=== PATIENT | female | born 1985 | race Caucasian/White ===

== ENCOUNTER 2025-01-21 09:31 | Observation (INO) | payer OTHER, SELFPAY ==
--- OUTSIDE RECORDS SUMMARY | 2025-01-21 10:08 | XMS REPORT | Clinical Summary ---
Author Name Unknown Organization [facility] [place] Address [address] [place] [address] Care Team Providers Care Nailing Machine Operator Automatic Name Role Phone Chrissie Guerrier MD Primary Care Provider [phone] Allergies Active Allergy Reactions Criticality Noted Date Comments Morphine High 07/02/2016 Other reaction(s): Other Gets severe headache Ceftriaxone Anaphylaxis High 07/02/2016 Rocephin [ceftriaxone Sodium In Dextrose] Medications * This document contains information received from the source organization and may not represent a complete record from that organization. clonazePAM (KlonoPIN) 0.5 mg tablet Take 0.5 mg by mouth as needed. Active IBUPROFEN (MOTRIN ORAL) Take 2 tablets by mouth as needed. Active Active Problems No known active problems Surgical History Surgery Date Site/Laterality Comments ABDOMINAL SURGERY 10/13/2000 - 10/12/2001 cholycystectomy ,laproscopic APPENDECTOMY 10/13/1999 - 10/12/2000 HYSTERECTOMY 10/13/2007 - 10/12/2008 WI COLONOSCOPY FLX DX W/RIO J SPEC WHEN PFRMD 07/22/2016 N/A Procedure: DIAGNOSTIC FLEXIBLE COLONOSCOPY PROXIMAL TO SPLENIC FLEXURE; Surgeon: Feliciano Chao MD; Location: MAIN ENDOSCOPY; Service: GASTROENTEROLOGY WI ESOPHAGOGASTRODUODENOSCOP Y TRANSORAL DIAGNOSTIC 07/22/2016 Esophagus/N/A Procedure: DIAGNOSTIC UPPER GASTROINTESTINAL ENDOSCOPY; Surgeon: Feliciano Chao MD; Location: MAIN ENDOSCOPY; Service: GASTROENTEROLOGY Social History Tobacco Use Types Packs/Day Years Used Date Smoking Tobacco: Never Assessed Comments No Sex and Gender Information Value Date Recorded Sex Assigned at Not on file Legal Sex Female 8:39 AM CDT Gender Identity Not on file Sexual Orientation Not on file Obstetrics History Plan of Treatment Health Maintenance Due Date Last Done Comments COVID-19 Vaccine ( - 2023-2 5 season) 2024 Influenza Vaccine (#1) 2024 Pneumococcal Vaccine Aged Out No long er eligible based on patient's age to complete this topic Insurance [place] Care Teams Nailing Machine Operator Automatic Relationship Specialty Start Date End Date Chrissie Guerrier MD [address] [place] [address] [email or web address] PCP - General Gastroenterology, Hepatology and Nutrition 07/02/16
[2025-01-21] MEDS ORDERED: AZTREONAM 1 GM/VIAL ONE (10:16)
[2025-01-21] MEDS ORDERED: NA CHLORIDE 0.9% 1,000 ML ONE (10:17)
[2025-01-21] MEDS ORDERED: NA CHLORIDE 0.9% 100 ML ONE ×2 (10:17→20:08)
[2025-01-21 10:18] LABS: Specific Gravity 1.008 (1.005-1.030); Sqamous Epithelial <5 /HPF (None Seen); Urine Bacteria None Seen /HPF (<20); Urine Bilirubin NEGATIVE (Negative); Urine Blood Negative (Negative); Urine Clarity Turbid (Clear); Urine Color Colorless (Yellow); Urine Culture Reflex Order NOT NEEDED; Urine Glucose NEGATIVE (Negative); Urine Ketones NEGATIVE (Negative); Urine Microscopic Reflex YN ORDER UMIC; Urine Nitrite NEGATIVE (Negative); Urine Protein NEGATIVE (Negative); Urine RBC None Seen /HPF (None Seen); Urine Urobilinogen Normal (Normal); Urine WBC <5 /HPF (<5); Urine pH 6.5 (5.0-7.0)
[2025-01-21 10:21] LABS: Absolute Lymphocytes (CBC) 1.3 K/uL (0.7-4.9); Absolute Monocytes 0.4 K/uL (0.1-1.3); Absolute Neutrophil 3.5 K/uL (1.8-8.0); Basophils % 0.7 % (0-1.3); Eosinophils % 0.1 % (0-4.4); Hemoglobin 13.3 g/dL (12.0-15.0); Lymphocytes % 24.4 % (15.3-44.8); MCH 32.1 pg (27.0-35.0); MCHC 35.1 g/dL (32.0-36.0); MCV 91.5 fL (80-100); MPV 8.5 fL (7.6-11.3); Neutrophils % 67.8 % (41.7-73.7); Platelets 274 thou/uL (152-406); RBC Red Blood Cell Count 4.16 M/uL (3.86-4.86); Red Cell Distribution Width 12.7 % (12.1-15.2)
[2025-01-21 10:46] LABS: ALT/SGPT 16 U/L (13-56); Albumin/Globulin Ratio 1.2 (1.1-1.8); Alkaline Phosphatase 67 U/L (45-117); Anion Gap 10.8 mEq/L (5.0-15.0); BUN Blood Urea Nitrogen 11 mg/dL (7-18); Bicarbonate 26 mEq/L (21-32); Bilirubin Total 0.5 mg/dL (0.2-1.0); Globulin 3.3 g/dL (2.3-3.5); Glomerular Filtration Rate 109 ml/min (=/>90); Glucose Level 95 mg/dL (74-106); Potassium 3.8 mEq/L (3.5-5.1); Protein, Total 7.3 g/dL (6.4-8.2); Sodium Level 139 mEq/L (136-145)
[2025-01-21 10:47] LABS: AST/SGOT < 10 U/L (15-37)
--- NOTE | 2025-01-21 11:40 | RAD REPORT ---
EXAMINATION: CT Abdomen Pelvis W Contrast CLINICAL INDICATION: Female, 39 years old. Abd pain;Flank pain TECHNIQUE: CT abdomen and pelvis was performed, after the administration of IV contrast, as per [facility] protocol. Axial, sagittal and coronal reconstructions were obtained. One or more of the following dose reduction techniques were used: Automated exposure control, adjustment of the mA and k V according to patient size, and iterative reconstruction. Unless otherwise specified, incidental findings do not require dedicated imaging follow-up. COMPARISON: 05/15/2012 FINDINGS: LOWER CHEST: The visualized lung bases are clear. LIVER: Normal in size and contour. No focal lesion. BILIARY SYSTEM: Status post cholecystectomy. SPLEEN: Normal size. No focal lesion. PANCREAS: No mass, ductal dilation, or sarah-pancreatic fluid. ADRENALS: Normal; no mass. KIDNEYS: Normal size and contour. No hydronephrosis. URINARY BLADDER: Unremarkable. GASTROINTESTINAL TRACT: At least moderate colonic stool burden, most notably along the ascending and proximal transverse colon. No evidence of free air, significant intra-abdominal free fluid, bowel obstruction or abscess. APPENDIX: Normal appendix. LYMPH NODES: No lymphadenopathy. MUSCULOSKELETAL: No acute or suspicious osseous abnormality. ADDITIONAL FINDINGS: None. IMPRESSION: No acute or concerning abnormalities seen in the abdomen or pelvis. At least moderate proximal colonic stool burden.
--- NOTE | 2025-01-21 12:24 | EDPHYS ---
Physician Documentation [facility] Name: Kristan Yanez Age: 39 yrs Sex: Female : 1985 Arrival Date: 01/21/2025 Time: 09:31 Bed 11 Private MD: Jefferson Dupree HPI: 01/21 12:17 This 39 yrs old Female presents to ER via Ambulatory with complaints of UTI. darrell 12:17 The patient presents with abdominal pain in the lower abdomen. Onset: The darrell symptoms/episode began/occurred 1 day(s) ago. The patient complains of pain in the left mid back. The pain does not radiate. Onset: The symptoms/episode began/occurred 3 day(s) ago. Modifying factors: The symptoms are alleviated by nothing. the symptoms are aggravated by nothing. The patient presents with urinary symptoms, dysuria, frequency, hesitancy, urgency. Modifying factors: The symptoms are alleviated by nothing, the symptoms are aggravated by nothing. urinating. Associated signs and symptoms: The patient has no apparent associated signs or symptoms. Severity of symptoms: At their worst the symptoms were. Historical: - Allergies: 09:48 Rocephin; aa5 09:48 Phenergan; aa5 09:48 Morphine; aa5 - PMHx: 09:48 None; aa5 - PSHx: 09:48 hysterectomy; Partial; aa5 - Immunization history:: Adult Immunizations unknown. - Infectious Disease History:: Denies. - Social history:: Smoking status: Reported history of juuling and/or vaping. - Family history:: not pertinent. ROS: 12:19 Constitutional: Negative for fever, chills, and weight loss, Eyes: Negative for injury, darrell pain, redness, and discharge, ENT: Negative for injury, pain, and discharge, Neck: Negative for injury, pain, and swelling, Cardiovascular: Negative for chest pain, palpitations, and edema, Respiratory: Negative for shortness of breath, cough, wheezing, and pleuritic chest pain, Abdomen/GI: Negative for abdominal pain, nausea, vomiting, diarrhea, and constipation, : Negative for injury, bleeding, discharge, and swelling, MS/Extremity: Negative for injury and deformity, Skin: Negative for injury, rash, and discoloration, Neuro: Negative for headache, weakness, numbness, tingling, and seizure, Psych: Negative for depression, anxiety, suicide ideation, homicidal ideation, and hallucinations, Allergy/Immunology: Negative for hives, rash, and allergies, Endocrine: Negative for neck swelling, polydipsia, polyuria, polyphagia, and marked weight changes, Hematologic/Lymphatic: Negative for swollen nodes, abnormal bleeding, and unusual bruising, 12:19 Back: Positive for pain with movement, flank pain, on the left, Exam: 12:19 Constitutional: This is a well developed, well nourished patient who is awake, alert, darrell and in no acute distress. Head/Face: Normocephalic, atraumatic. Eyes: Pupils equal round and reactive to light, extra-ocular motions intact. Lids and lashes normal. Conjunctiva and sclera are non-icteric and not injected. Cornea within normal limits. Periorbital areas with no swelling, redness, or edema. ENT: Nares patent. No nasal discharge, no septal abnormalities noted. Tympanic membranes are normal and external auditory canals are clear. Oropharynx with no redness, swelling, or masses, exudates, or evidence of obstruction, uvula midline. Mucous membranes moist. Neck: Trachea midline, no thyromegaly or masses palpated, and no cervical lymphadenopathy. Supple, full range of motion without nuchal rigidity, or vertebral point tenderness. No Meningismus. Chest/axilla: Normal chest wall appearance and motion. Nontender with no deformity. No lesions are appreciated. Cardiovascular: Regular rate and rhythm with a normal S1 and S2. No gallops, murmurs, or rubs. Normal PMI, no JVD. No pulse deficits. Respiratory: Lungs have equal breath sounds bilaterally, clear to auscultation and percussion. No rales, rhonchi or wheezes noted. No increased work of breathing, no retractions or nasal flaring. Abdomen/GI: Soft, non-tender, with normal bowel sounds. No distension or tympany. No guarding or rebound. No evidence of tenderness throughout. Skin: Warm, dry with normal turgor. Normal color with no rashes, no lesions, and no evidence of cellulitis. MS/ Extremity: Pulses equal, no cyanosis. Neurovascular intact. Full, normal range of motion., bilateral aka Neuro: Awake and alert, GCS 15, oriented to person, place, time, and situation. Cranial nerves II-XII grossly intact. Motor strength 5/5 in all extremities. Sensory grossly intact. Cerebellar exam normal. Normal gait. 12:19 Back: pain, that is mild, ROM is normal, normal spinal alignment noted, CVA tenderness, is absent, vertebral tenderness, is not appreciated, Vital Signs: 09:49 BP 123 / 78; Pulse 64; Resp 18 S; Temp 98.1(O); Pulse Ox 100% on R/A; Weight 67.13 kg aa5 (R); Height 5 ft. 4 in. (R); 10:34 BP 106 / 72; Pulse 61; Resp 16 S; Pulse Ox 100% on R/A; aa5 12:15 BP 116 / 66; Pulse 64; Resp 18; Pulse Ox 99% on R/A; kj2 09:49 Body Mass Index 25.40 (67.13 kg, 162.56 cm) aa5 MDM: 09:41 Medical Screening Exam initiated darrell 12:20 Differential diagnosis: nephrolithiasis, pyelonephritis, UTI, diverticulitis, darrell pancreatitis, nonspecific abdominal pain, ovarian cyst, uterine fibroids, urinary tract infection, Cholelithiasis, diverticulitis, non-specific abd pain. Data reviewed: vital signs, nurses notes, lab test result(s), radiologic studies, CT scan. Consideration of Admission/Observation Escalation of care including admission/observation considered. I considered the following discharge prescriptions or medication management in the emergency department Medications were administered in the Emergency Department. See MAR. Independent interpretation of the following test(s) in the Emergency Department CT Scan: My interpretation is ct ab/pelvis. Test considered but Not performed: Ultrasound no renal usg. Care significantly affected by the following chronic conditions: none. 01/21 09:41 Order name: Urinalysis w/ reflexes; Complete Time: 12:15 [facility] 01/21 09:41 Order name: Urine Culture [facility] 01/21 10:01 Order name: CBC with Diff; Complete Time: 12:15 [facility] 01/21 10:01 Order name: Comprehensive Metabolic Panel; Complete Time: 12:15 [facility] 01/21 13:37 Order name: Basic Metabolic Panel [facility] 01/21 13:37 Order name: Basic Metabolic Panel [facility] 01/21 13:37 Order name: Basic Metabolic Panel [facility] 01/21 13:37 Order name: Basic Metabolic Panel [facility] 01/21 13:37 Order name: Basic Metabolic Panel [facility] 01/21 13:37 Order name: Basic Metabolic Panel [facility] 01/21 13:37 Order name: Basic Metabolic Panel [facility] 01/21 13:37 Order name: Basic Metabolic Panel [facility] 01/21 13:37 Order name: CBC with Automated Diff [facility] 01/21 13:37 Order name: CBC with Automated Diff [facility] 01/21 13:37 Order name: CBC with Automated Diff [facility] 01/21 13:37 Order name: CBC with Automated Diff [facility] 01/21 13:37 Order name: CBC with Automated Diff [facility] 01/21 13:37 Order name: CBC with Automated Diff [facility] 01/21 13:37 Order name: CBC with Automated Diff [facility] 01/21 13:37 Order name: CBC with Automated Diff ED[facility] 01/21 13:37 Order name: Comprehensive Metabolic Panel [facility] 01/21 13:37 Order name: Comprehensive Metabolic Panel [facility] 01/21 13:37 Order name: Magnesium ED[facility] 01/21 13:37 Order name: Magnesium EDMS 01/21 13:37 Order name: Magnesium EDMS 01/21 13:37 Order name: Magnesium EDMS 01/21 13:37 Order name: Magnesium EDMS 01/21 13:37 Order name: Magnesium EDMS 01/21 13:37 Order name: Magnesium EDMS 01/21 13:37 Order name: Magnesium EDMS 01/21 13:37 Order name: Urinalysis w/ reflexes EDMS 01/21 10:01 Order name: CT Abd/Pelvis - IV Contrast Only; Complete Time: 12:15 darrell 01/21 14:33 Order name: Social Service Consult EDMS Administered Medications: 10:31 Drug: NS 0.9% IV 1000 ml IV at 1 bolus Per protocol; to be given as a bolus over 60 aa5 minutes Route: IV; Rate: 1 bolus; Site: right forearm; 10:31 Drug: Aztreonam IVPB 1 grams IVPB once over 30 mins; (mix in 100 mL NS) Route: IVPB; aa5 Infused Over: 30 mins; Site: right forearm; Disposition Summary: 01/21/25 12:24 Hospitalization Ordered Notes: Hospitalization Status: Observation darrell Provider: Phil Gonzalez darrell Condition: Stable darrell Problem: new darrell Symptoms: have improved darrell Bed/Room Type: Standard darrell [facility] eb Room Assignment: 223(01/21/25 19:11) eb Diagnosis - Dysuria darrell - UTI/ Urinary tract infection, site not specified - ESBL darrell Forms: - Medication Reconciliation Form darrell - SBAR form darrell - Leadership Thank You Letter darrell Signatures: Dispatcher [employer] EDMS Jefferson Lerma MD MD cha Calderon, Audri RN RN aa5 Vaishali Hernandez Corrections: (The following items were deleted from the chart) 09:42 09:42 Urinalysis+U.LAB.BRZ ordered. EDMS EDMS 09:42 09:42 Urine Culture+BA.LAB.BRZ ordered. EDMS EDMS 09:49 09:48 PMHx: Lupus; aa5 aa5 18:24 12:24 Telemetry/[facility] (observation) darrell aa5 18:24 12:24 darrell aa5 19:11 18:24 [facility] ER HOLD aa5 eb 19:11 18:24 ERHOLD- aa5 eb
--- NOTE | 2025-01-21 12:24 | ER ---
Nurse's Notes [facility] Name: Kristan Yanez Age: 39 yrs Sex: Female : 1985 Arrival Date: 01/21/2025 Time: 09:31 Bed 11 Private MD: Diagnosis: Dysuria;UTI/ Urinary tract infection, site not specified-ESBL Presentation: 01/21 09:49 Chief complaint: Patient states: "I've had a UTI for about 3 weeks". Pt reports painful aa5 urination, urine culture reports brought in by pt reads "E.Coli consistent with a probable ESBL". Coronavirus screen: At this time, the client does not indicate any symptoms associated with coronavirus-19. Ebola Screen: Patient denies travel to an Ebola-affected area in the 21 days before illness onset. Initial Sepsis Screen: Does the patient meet any 2 criteria? No. Patient's initial sepsis screen is negative. Does the patient have a suspected source of infection? No. Patient's initial sepsis screen is negative. Risk Assessment: Do you want to hurt yourself or someone else? Patient reports no desire to harm self or others. Onset of symptoms was December 2024. 09:49 Method Of Arrival: Ambulatory aa5 09:49 Acuity: SAE 3 aa5 Historical: - Allergies: 09:48 Rocephin; aa5 09:48 Phenergan; aa5 09:48 Morphine; aa5 - PMHx: 09:48 None; aa5 - PSHx: 09:48 hysterectomy; Partial; aa5 - Immunization history:: Adult Immunizations unknown. - Infectious Disease History:: Denies. - Social history:: Smoking status: Reported history of juuling and/or vaping. - Family history:: not pertinent. Screenin:50 [facility] ED Fall Risk Assessment (Adult) History of falling in the last 3 months, aa5 including since admission No falls in past 3 months (0 pts) Confusion or Disorientation No (0 pts) Intoxicated or Sedated No (0 pts) Impaired Gait No (0 pts) Mobility Assist Device Used No (0 pt) Altered Elimination No (0 pt) Score/Fall Risk Level 0 - 2 = Low Risk Oriented to surroundings, Maintained a safe environment, Educated pt \\T\\ family on fall prevention, incl call for assistance when getting out of bed, Assessed \\T\\ reinforced patient's understanding of fall precautions. Abuse screen: Denies threats or abuse. Nutritional screening: No deficits noted. Tuberculosis screening: No symptoms or risk factors identified. Assessment: 09:50 General: Appears comfortable, Behavior is calm, cooperative. Pain: Complains of pain in aa5 left mid back Quality of pain is described as aching, Pain began 2-3 days ago. Is intermittent. Neuro: Level of Consciousness is awake, alert, obeys commands, Oriented to person, place, time, situation. Cardiovascular: Patient's skin is warm and dry. Respiratory: Airway is patent Respiratory effort is even, unlabored, Respiratory pattern is regular, symmetrical. GI: Abdomen is non-distended, Bowel sounds present X 4 quads. Abd is soft and non tender X 4 quads. : Reports pain with urination. EENT: No signs and/or symptoms were reported regarding the EENT system. Derm: Skin is pink, warm \\T\\ dry. Musculoskeletal: Range of motion: intact in all extremities. 10:35 Reassessment: Patient is alert, oriented x 3, equal unlabored respirations, skin aa5 warm/dry/pink. 12:15 Reassessment: Patient appears in no apparent distress at this time. Patient and/or kj2 family updated on plan of care and expected duration. Pain level reassessed. Patient is alert, oriented x 3, equal unlabored respirations, skin warm/dry/pink. Vital Signs: 09:49 BP 123 / 78; Pulse 64; Resp 18 S; Temp 98.1(O); Pulse Ox 100% on R/A; Weight 67.13 kg aa5 (R); Height 5 ft. 4 in. (R); 10:34 BP 106 / 72; Pulse 61; Resp 16 S; Pulse Ox 100% on R/A; aa5 12:15 BP 116 / 66; Pulse 64; Resp 18; Pulse Ox 99% on R/A; kj2 09:49 Body Mass Index 25.40 (67.13 kg, 162.56 cm) aa5 ED Course: 09:40 Patient arrived in ED. cj3 09:40 Jefferson Lerma MD is Attending Physician. [facility] 09:48 Arm band placed on. aa5 09:48 Patient has correct armband on for positive identification. Bed in low position. Call aa5 light in reach. Side rails up X 1. Pulse ox on. NIBP on. 09:55 Triage completed. aa5 09:56 Katherine Guajardo, RN is Primary Nurse. aa5 10:05 Urine collected: clean catch specimen, sent to lab. aa5 10:11 Initial lab(s) drawn, by wv, sent to lab. Inserted saline lock: 22 gauge in right aa5 forearm, using aseptic technique. Blood collected. Flushed with 10 mL NS. 10:36 No provider procedures requiring assistance completed. aa5 11:20 CT Abd/Pelvis - IV Contrast Only In Process Unspecified. EDWV 12:00 Report given to CALVIN Alvarenga. aa5 12:22 Erich Calderon MD is Hospitalizing Provider. darrell 12:23 Phil Gonzalez MD is Hospitalizing Provider. darrell 19:48 Colette Greene RN is Primary Nurse. kj2 Administered Medications: 10:31 Drug: NS 0.9% IV 1000 ml IV at 1 bolus Per protocol; to be given as a bolus over 60 aa5 minutes Route: IV; Rate: 1 bolus; Site: right forearm; 10:31 Drug: Aztreonam IVPB 1 grams IVPB once over 30 mins; (mix in 100 mL NS) Route: IVPB; aa5 Infused Over: 30 mins; Site: right forearm; Medication: 10:35 VIS not applicable for this client. aa5 Outcome: 12:24 Decision to Hospitalize by Provider. darrell 20:48 Patient left the ED. ty Signatures: Dispatcher [employer] EDWV Jefferson Lerma MD MD cha Calderon, Audri, RN RN aa5 Gary Thomas Colette Greene RN RN kj2 Rossy Tang 3 Corrections: (The following items were deleted from the chart) 09:49 09:48 PMHx: Lupus; aa5 aa5
[2025-01-21] MEDS ORDERED: ACETAMINOPHEN 500 MG TAB PO PRN (13:31)
[2025-01-21] MEDS ORDERED: ONDANSETRON 4 MG/2 ML VIAL IV PRN (13:31)
--- NOTE | 2025-01-21 14:39 | P.HP ---
Certification for Inpatient Patient admitted to: Observation With expected LOS: <2 Midnights Patient will require the following post-hospital care: Home Health Services Practitioner: I am a practitioner with admitting privileges, knowledge of patient current condition, hospital course, and medical plan of care. Services: Services provided to patient in accordance with Admission requirements found in Title 42 Section 412.3 of the Code of Federal Regulations Patient History Date of Service: 01/21/25 History of Present Illness: 39-year-old female with history of ADHD, with 3-week history of UTI, has completed course of several antibiotics, levofloxacin, Augmentin and Bactrim with minimal resolution of UTI symptoms. Seen at PCPs office today for same issue so patient was directed to the ER for arrangement of outpatient IV antibiotics. Medical records from PCPs office showed recent E. coli UTI susceptible to Augmentin aztreonam, cefepime, cefoxitin, ceftazidime, O2 pen ding, imipenem, Zosyn. Case probably consulted for arrangement of outpatient IV antibiotics Allergies ceftriaxone sodium [From Rocephin] Allergy (Verified 05/15/12 16:01) Shortness of breath promethazine HCl [From Phenergan] Adverse Reaction (Verified 05/15/12 16:01) muscle cramps Morphine Allergy (Uncoded 10/13/17 15:59) Unknown Review of Systems 10-point ROS is otherwise unremarkable Physical Examination - Physical Exam General: Alert, Oriented x3 HEENT: Atraumatic Neck: Supple Respiratory: Clear to auscultation bilaterally Cardiovascular: No edema, Regular rate/rhythm Gastrointestinal: Normal bowel sounds, No tenderness Musculoskeletal: No clubbing, No swelling, No erythema, No tenderness - Studies Laboratory Data (last 24 hrs) 01/21/25 01/21/25 10:12 10:12 WBC 5.10 Hgb 13.3 Hct 38.0 Plt Count 274 Sodium 139 Potassium 3.8 BUN 11 Creatinine 0.71 Glucose 95 Total Bilirubin 0.5 AST < 10 L ALT 16 Alkaline Phosphatase 67 Assessment and Plan - Plan 1. E. coli UTI -Patient transferred from see PCPs office to the ER to have outpatient IV antibiotics arranged with placement of PICC line - Per patient, she has failed multiple antibiotics including Augmentin, Bactrim and levofloxacin. Per patient, could not tolerate Augmentin due to repeated nausea and vomiting. - Urine culture results from PCPs office showed E. coli susceptible to aztreonam Augmentin, amikacin, cefoxitin, cefepime, ceftazidime, O2 pending, imipenem, meropenem, Zosyn etc.,. Resistance to Bactrim and intermediate susceptibility to ciprofloxacin and levofloxacin - Patient currently on ertapenem - analytics senior manager consulted for treatment of outpatient IV antibiotics and PICC line placement - Advance Directives Does patient have a Living Will: No Does patient have a Durable POA for Healthcare: No
[2025-01-21] MEDS: ERTAPENEM SODIUM 1 GM VIAL IVPB SCH (15:00)
[2025-01-21] MEDS: Meropenem 1,000 MG in NA CHLORIDE 0.9% 100 ML IV SCH (17:00)
[2025-01-21 19:36] VITALS: BMI 25.2
[2025-01-21] MEDS ORDERED: Meropenem 1000 MG/VIAL IV ONE (20:08)
[2025-01-21 21:08] VITALS: O2SAT 99
--- NOTE | 2025-01-22 02:12 | RAD REPORT ---
TIME OF STUDY: 01/21/2025 11:49 PM CDT REASON FOR EXAM: PICC Line Placement COMPARISON: None. FINDINGS: AP view of the chest was obtained, chest 1 view. Lungs: Normal lung volume. No mass, or consolidation. Normal pulmonary vascularity.. A right arm PI CC is noted with the tip in the proximal SVC. Pleura: No pneumothorax. There is no pleural effusion. Heart and Mediastinum: Normal cardiomediastinal silhouette and great vessels.. Bones: No acute bony abnormality.. IMPRESSION: 1. No acute cardiopulmonary process. 2. Right arm PICC in good position with its tip in the proximal SVC. Electronically signed by: Sesar Read MD 01/22/2025 02:04 AM CDT RP Due to temporary technical issues with the PACS/[employer] reporting system, reports are being ailyn d by the in-house radiologist without review as a courtesy to ensure prompt reporting the interpreting radiologist is fully responsible for the content of the report. Transcribed Date/Time: 01/22/2025 2:11 AM
[2025-01-22 05:38] LABS: Absolute Lymphocytes (CBC) 1.7 K/uL (0.7-4.9); Absolute Monocytes 0.5 K/uL (0.1-1.3); Absolute Neutrophil 3.4 K/uL (1.8-8.0); Basophils % 0.3 % (0-1.3); Eosinophils % 0.3 % (0-4.4); Hematocrit 33.7 % (36.0-45.0); Hemoglobin 12.1 g/dL (12.0-15.0); MCH 32.6 pg (27.0-35.0); MCHC 35.8 g/dL (32.0-36.0); MPV 8.8 fL (7.6-11.3); Monocytes % 8.6 % (3.3-12.3); Neutrophils % 60.8 % (41.7-73.7); Platelets 264 thou/uL (152-406); RBC Red Blood Cell Count 3.71 M/uL (3.86-4.86)
[2025-01-22 05:54] LABS: Albumin 3.2 g/dL (3.4-5.0); Albumin/Globulin Ratio 1.3 (1.1-1.8); Alkaline Phosphatase 53 U/L (45-117); Anion Gap 8.6 mEq/L (5.0-15.0); BUN Blood Urea Nitrogen 10 mg/dL (7-18); Bicarbonate 25 mEq/L (21-32); Bilirubin Total 0.4 mg/dL (0.2-1.0); Globulin 2.5 g/dL (2.3-3.5); Glomerular Filtration Rate 118 ml/min (=/>90); Glucose Level 117 mg/dL (74-106); Magnesium 1.8 mg/dL (1.6-2.4); Potassium 3.6 mEq/L (3.5-5.1); Protein, Total 5.7 g/dL (6.4-8.2); Sodium Level 140 mEq/L (136-145)
[2025-01-22 06:11] LABS: ALT/SGPT < 14 U/L (13-56); AST/SGOT < 10 U/L (15-37)
[2025-01-22] MEDS: FLU (Fluarix Triv) TS24-25(6MOS UP)/PF 45 MCG/0.5 ML Syringe IM ONE (07:30)
[2025-01-22] MEDS: PNEUMOCOCCAL VACCINE 0.5 ML IMVAC ONE (08:00)
[2025-01-22] MEDS: Mupirocin NASAL 2 APPL/1 GM TUBE NAS SCH (08:21)
[2025-01-22] MEDS: ENOXAPARIN 40 MG/0.4 ML SQ SCH (08:21)
--- NOTE | 2025-01-22 10:49 | P.PN ---
Subjective Date of Service: 01/22/25 Chief Complaint: No complaint Review of Systems 10-point ROS is otherwise unremarkable Physical Examination - Vital Signs Temperature: 98.0 F Blood Pressure: 102/59 Pulse: 55 Respirations: 14 Pulse Ox (%): 98 - Physical Exam General: Alert, Oriented x3, Oriented x2, Oriented x1 Respiratory: Clear to auscultation bilaterally, Normal air movement Cardiovascular: No edema, Normal pulses, Regular rate/rhythm Gastrointestinal: Normal bowel sounds, Soft and benign, Non-distended Musculoskeletal: No clubbing, No swelling Neurological: Normal gait, Normal speech, Normal strength at 5/5 x4 extr Assessment And Plan - Plan 1. E. coli UTI -Patient transferred from see PCPs office to the ER to have outpatient IV antibiotics arranged with placement of PICC line - Per patient, she has failed multiple antibiotics including Augmentin, Bactrim and levofloxacin. Per patient, could not tolerate Augmentin due to repeated nausea and vomiting. - Urine culture results from PCPs office showed E. coli susceptible to aztreonam Augmentin, amikacin, cefoxitin, cefepime, ceftazidime, O2 pending, imipenem, meropenem, Zosyn etc.,. Resistance to Bactrim and intermediate susceptibility to ciprofloxacin and levofloxacin - Patient currently on ertapenem - operations support manager consulted for treatment of outpatient IV antibiotics and PICC line placement -PICC line was placed yesterday on 01/21/2025 - Will discharge today after outpatient IV antibiotics have been arranged
[2025-01-22] MEDS: POTASSIUM CL SA 10 MEQ TAB PO ONE (12:47)
[2025-01-22] MEDS: MAGNESIUM OXIDE 400 MG TAB PO ONE (12:50)
[2025-01-22] MEDS ORDERED: ERTAPENEM SODIUM 1 GM VIAL IVPB STA (13:54)
[2025-01-22] MEDS: ERTAPENEM NA 1 GM in NA CHLORIDE 0.9% 100 ML IVPB ONE (14:25)
--- NOTE | 2025-01-22 15:27 | P.PN ---
Subjective Date of Service: 01/22/25 Chief Complaint: No complaint Subjective: No new changes Review of Systems 10-point ROS is otherwise unremarkable Physical Examination - Vital Signs Temperature: 98.4 F Blood Pressure: 105/57 Pulse: 67 Respirations: 14 Pulse Ox (%): 100 - Physical Exam General: Alert, Oriented x3 HEENT: Atraumatic Neck: Supple Respiratory: Clear to auscultation bilaterally Cardiovascular: No edema Gastrointestinal: Normal bowel sounds Musculoskeletal: No clubbing, No swelling, No erythema Neurological: Normal gait, Normal strength at 5/5 x4 extr Lymphatics: No axilla or inguinal lymphadenopathy Assessment And Plan - Plan 1. E. coli UTI -Patient transferred from see PCPs office to the ER to have outpatient IV antibiotics arranged with placement of PICC line - Per patient, she has failed multiple antibiotics including Augmentin, Bactrim and levofloxacin. Per patient, could not tolerate Augmentin due to repeated nausea and vomiting. - Urine culture results from PCPs office showed E. coli susceptible to aztreonam Augmentin, amikacin, cefoxitin, cefepime, ceftazidime, O2 pending, imipenem, meropenem, Zosyn etc.,. Resistance to Bactrim and intermediate susceptibility to ciprofloxacin and levofloxacin - Patient currently on ertapenem - orchard manager consulted for treatment of outpatient IV antibiotics and PICC line placement -PICC line was placed yesterday on 01/21/2025 - Will discharge today after outpatient IV antibiotics have been arranged
--- NOTE | 2025-01-22 15:31 | P.DS ---
Admission Date: 01/21/25 Discharge Date: 01/22/25 Disposition: ROUTINE DISCHARGE Discharge Condition: GOOD Reason for Admission: No complaint Brief History of Present Illness: 39-year-old female with history of ADHD, with 3-week history of UTI, has completed course of several antibiotics, levofloxacin, Augmentin and Bactrim with minimal resolution of UTI symptoms. Seen at PCPs office today for same issue so patient was directed to the ER for arrangement of outpatient IV antibiotics. Medical records from PCPs office showed recent E. coli UTI susceptible to Augmentin aztreonam, cefepime, cefoxitin, ceftazidime, O2 pending, imipenem, Zosyn. Case probably consulted for arrangement of outpatient IV antibiotics Hospital Course: 39-year-old female with history of ADHD, recent diagnosis of E. coli UTI, failed multiple antibiotic therapy including levofloxacin, Augmentin and Bactrim, with persistent dysuria. Sent to the ER by PCP so outpatient IV antibiotics may be arranged. Per records from PCP it showed evidence of E. coli UTI susceptible to Augmentin, aztreonam, cefepime, cefoxitin, ceftazidime, imipenem, and Zosyn. Per patient, she could not tolerate Augmentin due to persistent nausea vomiting and also stated that she has an allergy to cephalosporins. IV order creatinine 1 g daily x 7 days was arranged prior to discharge. PICC line was placed and antibiotics arranged following then patient was then discharged 24 hours later post admission Vital Signs/Physical Exam: Temp Pulse Resp BP Pulse Ox 98.4 F 67 14 105/57 L 100 01/22/25 15:27 01/22/25 15:27 01/22/25 15:27 01/22/25 15:27 01/22/25 15:27 General: Alert, Oriented x3 HEENT: Atraumatic Neck: Supple Respiratory: Clear to auscultation bilaterally Capillary refill: <2 Seconds Gastrointestinal: Normal bowel sounds Integumentary: No rashes Neurological: Normal gait Laboratory Data at Discharge: WBC 5.70 thou/uL (4.3-10.9) 01/22/25 04:52 Hgb 12.1 g/dL (12.0-15.0) D 01/22/25 04:52 Hct 33.7 % (36.0-45.0) L 01/22/25 04:52 Plt Count 264 thou/uL (152-406) 01/22/25 04:52 Sodium 140 mEq/L (136-145) 01/22/25 04:52 Potassium 3.6 mEq/L (3.5-5.1) 01/22/25 04:52 BUN 10 mg/dL (7-18) 01/22/25 04:52 Creatinine 0.56 mg/dL (0.55-1.02) 01/22/25 04:52 Glucose 117 mg/dL (74-106) H 01/22/25 04:52 Magnesium 1.8 mg/dL (1.6-2.4) 01/22/25 04:52 Total Bilirubin 0.4 mg/dL (0.2-1.0) 01/22/25 04:52 AST < 10 U/L (15-37) L 01/22/25 04:52 ALT < 14 U/L (13-56) 01/22/25 04:52 Alkaline Phosphatase 53 U/L (45-117) D 01/22/25 04:52 Followup: Vince Hemphill DO [Primary Care Provider] - 1 Week
[2025-01-22 16:20] VITALS: BP 102/67; TEMP 98.1
== END 2025-01-22 17:05 | disposition home or self-care (01) ==
LOC: ER 09:31 → ERHOLD 15:15 → 2ND 20:41
PROVIDERS: ADMIT Internal Medicine; ATTEND Internal Medicine
DX: N39.0 Urinary tract infection, site not specified (principal); B96.20 Unspecified Escherichia coli [E. coli] as the cause of diseases classified elsewhere; F90.9 Attention-deficit hyperactivity disorder, unspecified type; Z16.29 Resistance to other single specified antibiotic
CPT/HCPCS: 87088; 85025 ×2; 81001; 87086; 36415; 83735; 80053 ×2; 74177; 71045; 96374; 99284; Q9967; J1650; J1335; J2185 ×3; J7030; G0378

== ENCOUNTER 2025-02-10 14:04 | Observation (INO) | payer OTHER ==
--- OUTSIDE RECORDS SUMMARY | 2025-02-10 14:11 | XMS REPORT | Clinical Summary ---
Author Name Unknown Organization [facility] Address [address] [place] [address] Care Team Providers Care Fund Accounting Manager Name Role Phone Chrissie Guerrier MD Primary Care Provider [phone] Allergies Active Allergy Reactions Criticality Noted Date [...] 10/13/1999 - 10/12/2000 HYSTERECTOMY 10/13/2007 - 10/12/2008 WY COLONOSCOPY FLX DX W/RIO J SPEC WHEN PFRMD 07/22/2016 N/A Procedure: DIAGNOSTIC FLEXIBLE COLONOSCOPY PROXIMAL TO SPLENIC FLEXURE; Surgeon: Feliciano Chao MD; Location: MAIN ENDOSCOPY; Service: GASTROENTEROLOGY WY ESOPHAGOGASTRODUODENOSCOP Y TRANSORAL DIAGNOSTIC 07/22/2016 Esophagus/N/A Procedure: [...] Due Date Last Done Comments COVID-19 Vaccine (2023-2 5 season) 2024 Influenza Vaccine (Season Ended) 2025 Pneumococcal Vaccine Aged Out No long er eligible based on patient's age to complete this topic [place] Care Teams Fund Accounting Manager Relationship Specialty Start Date End Date Chrissie Guerrier MD [address] [place] [address] [email or web address] PCP - General Gastroenterology, Hepatology and Nutrition 07/02/16
[2025-02-10] MEDS ORDERED: ACETAMINOPHEN 325 MG TABLET PO PRN (14:13)
[2025-02-10] MEDS ORDERED: ONDANSETRON 4 MG/2 ML VIAL IV PRN (14:13)
[2025-02-10 15:31] LABS: Absolute Lymphocytes (CBC) 1.2 K/uL (0.7-4.9); Absolute Monocytes 0.6 K/uL (0.1-1.3); Absolute Neutrophil 5.9 K/uL (1.8-8.0); Basophils % 0.4 % (0-1.3); Hematocrit 37.2 % (36.0-45.0); Hemoglobin 13.1 g/dL (12.0-15.0); Lymphocytes % 15.5 % (15.3-44.8); MCH 32.3 pg (27.0-35.0); MCHC 35.4 g/dL (32.0-36.0); MCV 91.4 fL (80-100); MPV 7.8 fL (7.6-11.3); Monocytes % 7.9 % (3.3-12.3); Neutrophils % 76.2 % (41.7-73.7); Nucleated Red Blood Cells % 0.1 % (0-0); PT Prothrombin Time 10.9 SECONDS (10-13.0); Platelets 272 thou/uL (152-406); Protime INR 0.95; RBC Red Blood Cell Count 4.07 M/uL (3.86-4.86); Red Cell Distribution Width 13.6 % (12.1-15.2)
--- NOTE | 2025-02-10 15:44 | P.HP ---
Certification for Inpatient Patient admitted to: Observation With expected LOS: <2 Midnights Practitioner: I am a practitioner with admitting privileges, knowledge of patient current condition, hospital course, and medical plan of care. Services: Services provided to patient in accordance with Admission requirements found in Title 42 Section 412.3 of the Code of Federal Regulations Patient History Date of Service: 02/10/25 Reason for admission: Left flank pain History of Present Illness: 39-year-old woman with a history of ADHD, recently hospitalized and treated for E. coli UTI 3 weeks ago and sent home with 7 days of IV Invanz, followed by a repeat urine culture as outpatient which was negative. Patient reports experiencing dysuria, increased urinary frequency, and suprapubic pain over the past 5 days, saw his PCP Dr. Hemphill, had another urinalysis and urine culture done. Patient started experiencing left flank pain yesterday. She also reports an episode of fever up to 100.3 at home, associated chills and rigors. Dr. Hemphill called for patient to be directly admitted for further evaluation and management of recurrent UTI complicated with pyelonephritis. Patient denies any history of kidney stones. Prior CT abdomen and pelvis done about 3 weeks ago was unremarkable, and showed no renal or genitourinary pathology. Patient is hospitalized for further management. Allergies ceftriaxone sodium [From Rocephin] Allergy (Verified 05/15/12 16:01) Shortness of breath promethazine HCl [From Phenergan] Adverse Reaction (Verified 05/15/12 16:01) muscle cramps Morphine Allergy (Uncoded 10/13/17 15:59) Unknown Home Medications: Mupirocin Calcium [Bactroban Nasal*] 1 appl ROSENDO BID #1 tube 02/11/25 traMADol HCL [Ultram*] 50 mg PO Q6H PRN #20 tab 02/11/25 - Past Medical/Surgical History Diabetic: No -: ADHD - Family History Father -: Hypertension - Social History Smoking Status: Never smoker Alcohol use: No CD- Drugs: No Caffeine use: Yes Place of Residence: Home Review of Systems Other: Patient denied any nausea or vomiting. She denied any headache She denied any diarrhea or constipation She denied any limb weakness She denied any chest pain or shortness of breath or cough. Except as documented, all other systems reviewed and negative. Physical Examination - Physical Exam General: Alert, In no apparent distress, Oriented x3 HEENT: Atraumatic, Normocephalic, Mucous membr. moist/pink, EOMI, Sclerae nonicteric Respiratory: Clear to auscultation bilaterally, Normal air movement Cardiovascular: No edema, Regular rate/rhythm, Normal S1 S2, No murmurs Capillary refill: <2 Seconds Gastrointestinal: Normal bowel sounds, Soft and benign, Non-distended, Other (Left costovertebral angle tenderness) Musculoskeletal: No swelling, No tenderness Integumentary: No rashes, No cyanosis Neurological: Normal speech, Normal strength at 5/5 x4 extr, Cranial nerves 3-12 intact Lymphatics: No axilla or inguinal lymphadenopathy - Studies Laboratory Data (last 24 hrs) 02/10/25 02/10/25 15:14 15:14 WBC 7.70 Hgb 13.1 Hct 37.2 Plt Count 272 PT 10.9 INR 0.95 Assessment and Plan - Plan Diagnosis Acute recurrent cystitis without hematuria rule out pyelonephritis History of ESBL E. coli urinary tract infection ADHD. Plan: Place patient under observation on the medical floor. Obtain CT abdomen and pelvis to rule out acute pyelonephritis or renal abscess Obtain CMP and CBC Obtain blood cultures, urinalysis with reflexes. Start IV meropenem IV hydration Infectious disease consult. Analgesics as needed. Plan of care discussed with patient, her PCP Dr. Hemphill and Infectious Disease Dr. Israel. DVT prophylaxis: Lovenox Advanced directive: Full code - Advance Directives Does patient have a Living Will: No Does patient have a Durable POA for Healthcare: No Time Spent Managing Pts Care (In Minutes): 78
[2025-02-10 15:52] LABS: ALT/SGPT 20 U/L (13-56); Albumin/Globulin Ratio 1.3 (1.1-1.8); Alkaline Phosphatase 71 U/L (45-117); Anion Gap 6.3 mEq/L (5.0-15.0); BUN Blood Urea Nitrogen 11 mg/dL (7-18); Bicarbonate 30 mEq/L (21-32); Bilirubin Total 0.6 mg/dL (0.2-1.0); Globulin 3.2 g/dL (2.3-3.5); Glomerular Filtration Rate 112 ml/min (=/>90); Glucose Level 100 mg/dL (74-106); Magnesium 1.8 mg/dL (1.6-2.4); Phosphorus 3.2 mg/dL (2.5-4.9); Potassium 4.3 mEq/L (3.5-5.1); Protein, Total 7.2 g/dL (6.4-8.2); Sodium Level 138 mEq/L (136-145)
[2025-02-10 15:54] LABS: AST/SGOT < 10 U/L (15-37)
[2025-02-10] MEDS: Meropenem 1,000 MG in NA CHLORIDE 0.9% 100 ML IV SCH (16:29)
[2025-02-10] MEDS: NA CHLORIDE 0.9% 1,000 ML IV SCH (16:29)
[2025-02-10 16:37] VITALS: BMI 25.7
[2025-02-10] MEDS ORDERED: HYDROCODONE/APAP 5/325 MG TAB PO PRN (16:38)
[2025-02-10] MEDS ORDERED: FENTANYL CITR 100 MCG/2 ML IV PRN (16:38)
[2025-02-10] MEDS: Mupirocin NASAL 2 APPL/1 GM TUBE NAS SCH (20:52)
--- NOTE | 2025-02-10 22:45 | CON ---
History Of Present Illness: This is a 39-year-old female I was consulted for evaluation and treatmen t of urinary tract infection secondary to E. coli ESBL. The patient was recently hospitalized and tr eated 3 weeks ago with 7 days of Invanz. The patient developed severe back pain and burning in urina tion for which she saw her primary care doctor. Patient was given some Bactrim and urine analysis an d cultures were done. The patient also had temperature of 100.3 at home with chills and rigors. She was sent to the hospital for management of complicated urinary tract infection with pyelonephritis. Denies any history of stones or any other medical problems. CT scan done 3 weeks ago was unremarkab le. Past Medical History: None. Social History: Nonsmoker, nondrinker. Family History: Noncontributory. Medications: Meropenem. See MARs for other medications. Allergies: ROCEPHIN, PHENERGAN, MORPHINE. Review of Systems: A 10-point review was performed. Physical Examination: General: This is a 39-year-old female sitting in bed, not in any acute cardiopulmonary distress. Vital Signs: Temperature 97.9, pulse 71, respirations 16, blood pressure 110/65. HEENT: Unremarkable. Neck: Supple. Lungs: Basal crackles. Heart: S1, S2. Regular. Abdomen: Soft. Bowel sounds present. Left CVA tenderness. Extremities: No edema. Laboratory Data: Shows WBC 7.7, hemoglobin 13.1, platelets are 272. Chemistry shows BUN of 11, crea tinine 0.6. Blood cultures are pending. Urinalysis is pending. Assessment And Plan: This is a 39-year-old female coming in with recurrent urinary tract infection, recently treated for E. coli ESBL with Invanz. Repeat cultures done at primary care are not availabl e, but as per patient, she had second episode of similar urinary tract infection with E coli ESBL. I agree with continuing meropenem for 2 weeks. Consider evaluation by urologist. Consider repeating CT scan of abdomen and pelvis. We will follow the patient closely. Thank you Dr. Romero for consult. NF/MODL Voice ID: [id number] Report ID: [id number]
--- NOTE | 2025-02-11 00:45 | RAD REPORT ---
CT ABDOMEN PELVIS WITH IV CONTRAST Exam date: February 10, 2025 Comparison: None Indication: Left flank pain Technique: Multiple helical axial images were obtained through the abdomen and pelvis using intravenous contrast . Coronal and sagittal reformatted images were obtained. All CT scans at this facility use dose modulation, iterative reconstruction, and/or weight-based dosi ng when appropriate to reduce radiation dose to as low as reasonably achievable. Findings: Lung bases: [Appear unremarkable]. Liver: [There is low attenuation suggesting fatty changes.] Gallbladder/biliary: [Cholecystectomy changes are present. There is dilatation of the common bile nick t measuring up to 1.9 cm in width with distal tapering] Pancreas: [Unremarkable. No evidence of ductal enlargement.] Spleen: Appears unremarkable. No splenomegaly. Adrenals: Unremarkable. Kidneys and ureters: [No evidence of hydronephrosis. Normal enhancement.] Bladder: Unremarkable. Pelvic organs: Post hysterectomy changes are present. Bowel: [There is a moderate amount of fecal material in the colon. No evidence of bowel obstruction. No bowel wall thickening.] Appendix is not visualized. Vasculature: Unremarkable. Peritoneum: No free air. No significant free fluid. Lymph nodes: Unremarkable. Soft tissues: Breast implants are present. Bones: Disc space narrowing, vacuum disc phenomenon and mild osteophyte formation at L5-S1 demonstrat ed. Impression: 1. No evidence for an acute process within the abdomen or pelvis. 2. Dilatation of the common bile duct which is nonspecific in the setting of prior cholecystectomy. 3. Hepatic steatosis. 4. Moderate amount of fecal material in the colon. Electronically signed by: Stephane Bal MD 02/11/2025 12:42 AM CDT Due to temporary technical issues with the PACS/SepSensor reporting system, reports are being ailyn d by the in-house radiologist without review as a courtesy to ensure prompt reporting the interpreting radiologist is fully responsible for the content of the report. Transcribed Date/Time: 02/11/2025 12:45 AM
[2025-02-11 05:46] LABS: Specific Gravity 1.011 (1.005-1.030); Sqamous Epithelial <5 /HPF (None Seen); Urine Bacteria <20 /HPF (<20); Urine Bilirubin NEGATIVE (Negative); Urine Blood 1+ (Negative); Urine Clarity Extremely Turbid (Clear); Urine Color Light-Yellow (Yellow); Urine Culture Reflex Order REFLEXED; Urine Glucose NEGATIVE (Negative); Urine Ketones NEGATIVE (Negative); Urine Microscopic Reflex YN ORDER UMIC; Urine Nitrite NEGATIVE (Negative); Urine Protein TRACE (Negative); Urine Urobilinogen Normal (Normal); Urine WBC >50 /HPF (<5); Urine WBC Clump Moderate /HPF (None Seen); Urine pH 7.5 (5.0-7.0)
[2025-02-11 06:59] LABS: Absolute Lymphocytes (CBC) 1.4 K/uL (0.7-4.9); Absolute Monocytes 0.6 K/uL (0.1-1.3); Absolute Neutrophil 3.9 K/uL (1.8-8.0); Basophils % 0.6 % (0-1.3); Eosinophils % 0.3 % (0-4.4); Hematocrit 32.1 % (36.0-45.0); Hemoglobin 11.4 g/dL (12.0-15.0); Lymphocytes % 24.4 % (15.3-44.8); MCHC 35.5 g/dL (32.0-36.0); MPV 8.6 fL (7.6-11.3); Monocytes % 9.8 % (3.3-12.3); Neutrophils % 64.9 % (41.7-73.7); Platelets 225 thou/uL (152-406); RBC Red Blood Cell Count 3.45 M/uL (3.86-4.86); Red Cell Distribution Width 13.7 % (12.1-15.2)
[2025-02-11 07:13] LABS: Anion Gap 6.2 mEq/L (5.0-15.0); Magnesium 1.7 mg/dL (1.6-2.4); Phosphorus 3.6 mg/dL (2.5-4.9); Potassium 4.2 mEq/L (3.5-5.1)
[2025-02-11] MEDS: ENOXAPARIN 40 MG/0.4 ML SQ SCH (09:56)
[2025-02-11] MEDS: ERTAPENEM NA 1 GM in NA CHLORIDE 0.9% 100 ML IVPB ONE (13:58)
[2025-02-11] MEDS ORDERED: ERTAPENEM SODIUM 1 GM VIAL IVPB SCH (16:00)
[2025-02-11 17:01] VITALS: BP 103/56; TEMP 98.8
--- NOTE | 2025-02-11 17:13 | P.DS ---
Admission Date: 02/10/25 Discharge Date: 02/11/25 Disposition: ROUTINE DISCHARGE Discharge Condition: FAIR Reason for Admission: Left flank pain Brief History of Present Illness: 39-year-old woman with a history of ADHD, recently hospitalized and treated for E. coli UTI 3 weeks ago and sent home with 7 days of IV Invanz, followed by a repeat urine culture as outpatient which was negative. Patient reports experiencing dysuria, increased urinary frequency, and suprapubic pain over the past 5 days, saw his PCP Dr. Hemphill, had another urinalysis and urine culture done. Patient started experiencing left flank pain yesterday. She also reports an episode of fever up to 100.3 at home, associated chills and rigors. Dr. Hemphill called for patient to be directly admitted for further evaluation and management of recurrent UTI complicated with pyelonephritis. Patient denies any history of kidney stones. Prior CT abdomen and pelvis done about 3 weeks ago was unremarkable, and showed no renal or genitourinary pathology. Patient is hospitalized for further management. Hospital Course: Diagnosis Acute recurrent cystitis without hematuria, rule out pyelonephritis History of ESBL infection Patient was treated with IV meropenem. I called Dr. Tirado's office and was informed her most recent urine culture is growing E. coli. Her previous urine culture during hospitalization 1 month ago grew ESBL E. coli. Patient was evaluated by infectious disease specialist Dr. Israel. CT abdomen and pelvis done during this hospital stay did not show any abscess or evidence of pyelonephritis. Blood cultures did not show any bacterial growth at the moment. Given patient's previous urine culture growing ESBL E. coli, patient is planned for a 14-day course of IV Invanz as recommended by infectious disease Dr. Israel. Midline placed for outpatient IV Invanz. Antibiotics has been arranged. Patient has stable vitals, no fever since admission. She states her left flank pain has resolved. She has responded to treatment. Patient informed to follow-up with the urologist to evaluate for the reason for her recurrent UTI. Patient stated she has already arranged for an appointment with a urologist Dr. Hannon in [place]. Vital Signs/Physical Exam: Temp Pulse Resp BP Pulse Ox 98.8 F 70 16 103/56 L 100 02/11/25 16:00 02/11/25 16:00 02/11/25 16:02/11/25 16:00 02/11/25 16:00 General: Alert, In no apparent distress, Oriented x3 HEENT: Mucous membr. moist/pink Neck: Supple, JVD not distended Respiratory: Clear to auscultation bilaterally, Normal air movement Cardiovascular: No edema, Regular rate/rhythm, Normal S1 S2 Gastrointestinal: Normal bowel sounds, Soft and benign, Non-distended Musculoskeletal: No swelling Integumentary: No rashes, No tenderness/swelling, No cyanosis Neurological: Normal strength at 5/5 x4 extr Lymphatics: No axilla or inguinal lymphadenopathy Laboratory Data at Discharge: WBC 5.90 thou/uL (4.3-10.9) 02/11/25 06:38 Hgb 11.4 g/dL (12.0-15.0) L D 02/11/25 06:38 Hct 32.1 % (36.0-45.0) L 02/11/25 06:38 Plt Count 225 thou/uL (152-406) 02/11/25 06:38 PT 10.9 SECONDS (10-13.0) 02/10/25 15:14 INR 0.95 02/10/25 15:14 Sodium 138 mEq/L (136-145) 02/11/25 06:38 Potassium 4.2 mEq/L (3.5-5.1) 02/11/25 06:38 BUN 9 mg/dL (7-18) 02/11/25 06:38 Creatinine 0.64 mg/dL (0.55-1.02) 02/11/25 06:38 Glucose 119 mg/dL (74-106) H 02/11/25 06:38 Phosphorus 3.6 mg/dL (2.5-4.9) 02/11/25 06:38 Magnesium 1.7 mg/dL (1.6-2.4) 02/11/25 06:38 Total Bilirubin 0.6 mg/dL (0.2-1.0) 02/10/25 15:14 AST < 10 U/L (15-37) L 02/10/25 15:14 ALT 20 U/L (13-56) 02/10/25 15:14 Alkaline Phosphatase 71 U/L (45-117) 02/10/25 15:14 Home Medications: Mupirocin Calcium [Bactroban Nasal*] 1 appl ROSENDO BID #1 tube 02/11/25 traMADol HCL [Ultram*] 50 mg PO Q6H PRN #20 tab 02/11/25 New Medications: Mupirocin Calcium [Bactroban Nasal*] 1 appl ROSENDO BID #1 tube traMADol HCL [Ultram*] 50 mg PO Q6H PRN #20 tab PRN Reason: Pain Physician Discharge Instructions: 39-year-old woman with a history of ADHD, recently hospitalized and treated for E. coli UTI 3 weeks ago and sent home with 7 days of IV Invanz, followed by a repeat urine culture as outpatient which was negative. Patient reports experiencing dysuria, increased urinary frequency, and suprapubic pain over the past 5 days, saw his PCP Dr. Hemphill, had another urinalysis and urine culture done. Patient started experiencing left flank pain yesterday. She also reports an episode of fever up to 100.3 at home, associated chills and rigors. Dr. Hemphill called for patient to be directly admitted for further evaluation and management of recurrent UTI complicated with pyelonephritis. Prior CT abdomen and pelvis done about 3 weeks ago was unremarkable, and showed no renal or genitourinary pathology. Patient is hospitalized for further management. Patient was treated with IV meropenem. I called Dr. Tirado's office and was informed her most recent urine culture is growing E. coli. Patient was evaluated by infectious disease specialist Dr. Israel. CT abdomen and pelvis done during this hospital stay did not show any abscess or evidence of pyelonephritis. Blood cultures did not show any bacterial growth at the moment. Given patient's previous urine culture growing ESBL E. coli, patient is planned for a 14-day course of IV Invanz as recommended by infectious disease Dr. Israel. Midline placed for outpatient IV Invanz. Antibiotics has been arranged. Patient has stable vitals, no fever since admission. She states her left flank pain has resolved. She has responded to treatment. Patient informed to follow-up with the urologist to evaluate for the reason for her recurrent UTI. Patient stated she has already arranged for an appointment with a urologist Dr. Hannon in [place]. Followup: Vince Hemphill DO [Primary Care Provider] - 1-2 Weeks Time spent managing pt's care (in minutes): 33
--- NOTE | 2025-02-11 20:43 | P.PN ---
Date of Service: 02/11/25 Subjective: A 10-point review and negative unlesst stated in HPI. Pt is alert. denied problem with abx. Objective Physical Examination: Temp Pulse Resp BP Pulse Ox 98.8 F 70 16 103/56 L 100 02/11/25 16:00 02/11/25 16:00 02/11/25 16:00 02/11/25 16:00 02/11/25 16:00 Microbiology 02/10/25 16:15 Blood - Blood Aerobic Blood Culture - Preliminary No growth in 24 hours. 02/10/25 16:15 Blood - Blood Anaerobic Blood Culture - Preliminary No growth in 24 hours. 02/10/25 15:14 Blood - Blood Aerobic Blood Culture - Preliminary No growth in 24 hours. 02/10/25 15:14 Blood - Blood Anaerobic Blood Culture - Preliminary No growth in 24 hours. Laboratory Results WBC 5.90 thou/uL (4.3-10.9) 02/11/25 06:38 RBC 3.45 M/uL (3.86-4.86) L 02/11/25 06:38 Hgb 11.4 g/dL (12.0-15.0) L D 02/11/25 06:38 Hct 32.1 % (36.0-45.0) L 02/11/25 06:38 MCV 93.0 fL (80-100) 02/11/25 06:38 MCH 33.0 pg (27.0-35.0) 02/11/25 06:38 MCHC 35.5 g/dL (32.0-36.0) 02/11/25 06:38 RDW 13.7 % (12.1-15.2) 02/11/25 06:38 Plt Count 225 thou/uL (152-406) 02/11/25 06:38 MPV 8.6 fL (7.6-11.3) 02/11/25 06:38 Neutrophils % 64.9 % (41.7-73.7) 02/11/25 06:38 Lymphocytes % 24.4 % (15.3-44.8) 02/11/25 06:38 Monocytes % 9.8 % (3.3-12.3) 02/11/25 06:38 Eosinophils % 0.3 % (0-4.4) 02/11/25 06:38 Basophils % 0.6 % (0-1.3) 02/11/25 06:38 Absolute Neutrophils 3.9 K/uL (1.8-8.0) 02/11/25 06:38 Absolute Lymphocytes 1.4 K/uL (0.7-4.9) 02/11/25 06:38 Absolute Monocytes 0.6 K/uL (0.1-1.3) 02/11/25 06:38 Absolute Eosinophils 0.0 K/uL (0-0.5) 02/11/25 06:38 Absolute Basophils 0.0 K/uL (0-0.5) 02/11/25 06:38 PT 10.9 SECONDS (10-13.0) 02/10/25 15:14 INR 0.95 02/10/25 15:14 Sodium 138 mEq/L (136-145) 02/11/25 06:38 Potassium 4.2 mEq/L (3.5-5.1) 02/11/25 06:38 Chloride 109 mEq/L (98-107) H 02/11/25 06:38 Carbon Dioxide 27 mEq/L (21-32) 02/11/25 06:38 Anion Gap 6.2 mEq/L (5.0-15.0) 02/11/25 06:38 BUN 9 mg/dL (7-18) 02/11/25 06:38 Creatinine 0.64 mg/dL (0.55-1.02) 02/11/25 06:38 Est GFR (CKD-EPI) 114 ml/min (=/>90) 02/11/25 06:38 Glucose 119 mg/dL (74-106) H 02/11/25 06:38 Lactic Acid < 0.8 mmol/L (0.4-2.0) 02/10/25 15:14 Calcium 8.2 mg/dL (8.5-10.1) L D 02/11/25 06:38 Phosphorus 3.6 mg/dL (2.5-4.9) 02/11/25 06:38 Magnesium 1.7 mg/dL (1.6-2.4) 02/11/25 06:38 Total Bilirubin 0.6 mg/dL (0.2-1.0) 02/10/25 15:14 AST < 10 U/L (15-37) L 02/10/25 15:14 ALT 20 U/L (13-56) 02/10/25 15:14 Alkaline Phosphatase 71 U/L (45-117) 02/10/25 15:14 Serum Total Protein 7.2 g/dL (6.4-8.2) 02/10/25 15:14 Albumin 4.0 g/dL (3.4-5.0) 02/10/25 15:14 Globulin 3.2 g/dL (2.3-3.5) 02/10/25 15:14 Albumin/Globulin Ratio 1.3 (1.1-1.8) 02/10/25 15:14 Urine Color Light-yellow (Yellow) 02/10/25 18:15 Urine Clarity Extremely turbid (Clear) H 02/10/25 18:15 Urine pH 7.5 (5.0-7.0) H 02/10/25 18:15 Ur Specific [place] 1.011 (1.005-1.030) 02/10/25 18:15 Glucose (UA)(Auto) Negative (Negative) 02/10/25 18:15 Urine Ketones Negative (Negative) 02/10/25 18:15 Urine Blood 1+ (Negative) H 02/10/25 18:15 Urine Nitrite Negative (Negative) 02/10/25 18:15 Urine Bilirubin Negative (Negative) 02/10/25 18:15 Urine Urobilinogen Normal (Normal) 02/10/25 18:15 Ur Leukocyte Esterase 250 Jonathan/uL (Negative) H 02/10/25 18:15 Urine RBC 5-10 /HPF (None Seen) H 02/10/25 18:15 Urine WBC >50 /HPF (<5) H 02/10/25 18:15 Urine WBC Clumps Moderate /HPF (None Seen) H 02/10/25 18:15 Ur Squamous Epith Cells <5 /HPF (None Seen) 02/10/25 18:15 U Non-Squamous Epi Cells <5 /HPF (None Seen) 02/10/25 18:15 Urine Bacteria <20 /HPF (<20) 02/10/25 18:15 Urine Culture Reflexed Reflexed 02/10/25 18:15 Urine Total Protein Trace (Negative) H 02/10/25 18:15 PE HEENT: Unremarkable. PERRLA Neck: Supple. Lungs: Basal crackles. Heart: S1, S2. Regular. Abdomen: Soft. Bowel sounds present.NT, ND Extremities: No edema. Assessment and Planning Recurrent UTI Hx of E coli ESBL s/p Invanz 7 days Blood culture negative continuing meropenem for 2 weeks. stop date february 24, Consider evaluation by urologist case round and in agreement with Dr Israel
== END 2025-02-11 18:08 | disposition home or self-care (01) ==
LOC: 2ND 14:08
PROVIDERS: ADMIT Internal Medicine; ATTEND Internal Medicine
DX: N30.00 Acute cystitis without hematuria (principal); R10.9 Unspecified abdominal pain; F90.9 Attention-deficit hyperactivity disorder, unspecified type; R30.0 Dysuria; R35.0 Frequency of micturition; R50.9 Fever, unspecified; Z88.5 Allergy status to narcotic agent; Z88.8 Allergy status to other drugs, medicaments and biological substances
CPT/HCPCS: 87040 ×2; 87088; 85025 ×2; 81001; 87086; 80048; 36415; 83735 ×2; 84100 ×2; 85610; 83605; 87077; 87186; 80053; 74177; Q9967; J1650; J1335; J2185 ×3; J7030 ×2; G0379; G0378 ×2

== ENCOUNTER 2025-02-18 14:05 | Emergency (ER) | payer OTHER ==
--- OUTSIDE RECORDS SUMMARY | 2025-02-18 14:08 | XMS REPORT | Clinical Summary ---
Author Name Unknown Organization [facility] [place] Address [address] [place] [address] Care Team Providers Care Medical Practice Manager Name Role Phone Chrissie Guerrier MD Primary Care Provider [phone] Allergies Active Allergy Reactions Criticality Noted Date [...] 10/13/1999 - 10/12/2000 HYSTERECTOMY 10/13/2007 - 10/12/2008 [place] COLONOSCOPY FLX DX W/RIO J SPEC WHEN PFRMD 07/22/2016 N/A Procedure: DIAGNOSTIC FLEXIBLE COLONOSCOPY PROXIMAL TO SPLENIC FLEXURE; Surgeon: Feliciano Chao MD; Location: MAIN ENDOSCOPY; Service: GASTROENTEROLOGY [place] ESOPHAGOGASTRODUODENOSCOP Y TRANSORAL DIAGNOSTIC 07/22/2016 Esophagus/N/A Procedure: [...] POS [place] PPO POS Care Teams Medical Practice Manager Relationship Specialty Start Date End Date Chrissie Guerrier MD [address] [place] [address] [email or web address] PCP - General Gastroenterology, Hepatology and Nutrition 07/02/16
[2025-02-18 15:07] LABS: Absolute Lymphocytes (CBC) 1.2 K/uL (0.7-4.9); Absolute Monocytes 0.3 K/uL (0.1-1.3); Absolute Neutrophil 3.6 K/uL (1.8-8.0); Basophils % 0.5 % (0-1.3); Hematocrit 35.4 % (36.0-45.0); Hemoglobin 12.5 g/dL (12.0-15.0); Lymphocytes % 22.6 % (15.3-44.8); MCH 32.4 pg (27.0-35.0); MCHC 35.3 g/dL (32.0-36.0); MCV 91.8 fL (80-100); MPV 8.6 fL (7.6-11.3); Monocytes % 5.5 % (3.3-12.3); Neutrophils % 71.4 % (41.7-73.7); Platelets 253 thou/uL (152-406); RBC Red Blood Cell Count 3.86 M/uL (3.86-4.86); Red Cell Distribution Width 13.1 % (12.1-15.2)
[2025-02-18 15:15] LABS: PT Prothrombin Time 11.1 SECONDS (10-13.0); PTT, Activated Partial Thromb 37.3 SECONDS (27.2-37.4); Protime INR 0.97
[2025-02-18 15:34] LABS: ALT/SGPT 16 U/L (13-56); Albumin 4.2 g/dL (3.4-5.0); Albumin/Globulin Ratio 1.3 (1.1-1.8); Alkaline Phosphatase 67 U/L (45-117); Anion Gap 9.5 mEq/L (5.0-15.0); BUN Blood Urea Nitrogen 9 mg/dL (7-18); Bicarbonate 26 mEq/L (21-32); Bilirubin Total 0.7 mg/dL (0.2-1.0); Globulin 3.3 g/dL (2.3-3.5); Glomerular Filtration Rate 109 ml/min (=/>90); Glucose Level 97 mg/dL (74-106); Potassium 3.5 mEq/L (3.5-5.1); Protein, Total 7.5 g/dL (6.4-8.2); Sodium Level 137 mEq/L (136-145)
[2025-02-18 15:35] LABS: AST/SGOT < 10 U/L (15-37)
[2025-02-18 15:35] LABS: Specific Gravity 1.016 (1.005-1.030); Sqamous Epithelial <5 /HPF (None Seen); Urine Bacteria None Seen /HPF (<20); Urine Bilirubin NEGATIVE (Negative); Urine Blood 2+ (Negative); Urine Clarity Clear (Clear); Urine Color Light-Yellow (Yellow); Urine Crystals Unidentified Few /HPF (None Seen); Urine Culture Reflex Order NOT NEEDED; Urine Glucose NEGATIVE (Negative); Urine Ketones NEGATIVE (Negative); Urine Microscopic Reflex YN ORDER UMIC; Urine Nitrite NEGATIVE (Negative); Urine Protein NEGATIVE (Negative); Urine RBC >50 /HPF (None Seen); Urine Urobilinogen Normal (Normal); Urine WBC <5 /HPF (<5); Urine pH 6.5 (5.0-7.0)
--- NOTE | 2025-02-18 15:55 | EDPHYS ---
Physician Documentation [facility] Name: Kristan Yanez Age: 39 yrs Sex: Female : 1985 Arrival Date: 02/18/2025 Time: 14:05 Bed 10 Private MD: ED Physician Jaxson Bailon HPI: 02/18 14:21 This 39 yrs old Female presents to ER via Ambulatory with complaints of PICC line sb4 problem. 14:21 Patient presents today with concerns that her midline may be infected. Patient states sb4 that she has been dealing with a resistant UTI over the past month. She was initially on a 2-week course of IV antibiotics through PICC line. The UTI returned, grew ESBL E. coli, had a midline placed 1 week ago and has been on IV Invanz since. States that she is administering the antibiotics herself at home, but is concerned that the site might be infected because she has not had any home health tend to it. Additionally, she states that she is still experiencing UTI symptoms. FEED MANAGEMENT ADVISOR: 15:56 Not kj2 Historical: - Allergies: 14:16 Morphine; iw 14:16 Phenergan; iw 14:16 Rocephin; iw - Home Meds: 14:17 None [Active]; iw - PMHx: 14:17 None; iw - PSHx: 14:16 hysterectomy; Partial; iw - Immunization history:: Adult Immunizations not up to date. - Infectious Disease History:: ESBL, . - Social history:: Smoking status: Reported history of juuling and/or vaping. ROS: 14:30 Constitutional: Negative for fever, chills, and weight loss, sb4 14:30 : Positive for urinary symptoms, 14:30 MS/extremity: Positive for pain, of the left bicep, 14:30 All other systems are negative, Exam: 15:47 Constitutional: This is a well developed, well nourished patient who is awake, alert, sb4 and in no acute distress. Head/Face: Normocephalic, atraumatic. Eyes: Extra-ocular motions intact. Periorbital areas with no swelling, redness, or edema. ENT: Mucous membranes moist. Cardiovascular: Regular rate and rhythm with a normal S1 and S2. Respiratory: No increased work of breathing, no retractions or nasal flaring. Abdomen/GI: Soft, non-tender, no distension. 15:47 Skin: Midline right upper arm/bicep, no surrounding erythema, warmth, cellulitis, no streaking. Mild ecchymosis around insertion site. Vital Signs: 14:14 BP 138 / 89; Pulse 87; Resp 16; Temp 98.3(O); Pulse Ox 100% on R/A; Weight 68.04 kg; iw Height 5 ft. 4 in. ; Pain 0/10; 15:40 BP 136 / 82; Pulse 72; Resp 20; Temp 98.2; Pulse Ox 100% ; kj2 14:14 Body Mass Index 25.75 (68.04 kg, 162.56 cm) iw 14:14 Pain Scale: Adult iw MDM: 14:10 Medical Screening Exam initiated sb4 15:48 Differential diagnosis: UTI, sepsis, cellulitis, phlebitis. sb4 16:00 Data reviewed: vital signs, nurses notes, lab test result(s), and as a result, I will sb4 discharge patient. Counseling: I had a detailed discussion with the patient and/or guardian regarding the historical points, exam findings, and any diagnostic results supporting the discharge/admit diagnosis, lab results, the need for outpatient follow up, for definitive care, to return to the emergency department if symptoms worsen or persist or if there are any questions or concerns that arise at home. 02/18 14:23 Order name: Blood Culture Adult (2) sb4 02/18 14:23 Order name: CBC with Diff; Complete Time: 15:09 sb4 02/18 14:23 Order name: CMP; Complete Time: 15:36 sb4 02/18 14:23 Order name: Lactate w/ 2H reflex if indic.; Complete Time: 15:36 sb4 02/18 14:23 Order name: Protime (+inr); Complete Time: 15:15 sb4 02/18 14:23 Order name: Ptt, Activated; Complete Time: 15:15 sb4 02/18 14:26 Order name: UA Rfx Olaf Cult if indicated; Complete Time: 15:36 sb4 02/18 14:18 Order name: Gown patient sb4 02/18 15:47 Order name: Misc. Order: new midline dressing sb4 Administered Medications: No medications were administered Disposition: 21:11 I was immediately available on-site in the Emergency Department for consultation in the ms3 care of the patient. Disposition Summary: 02/18/25 15:54 Discharge Ordered Notes: Location: Home sb4 Problem: new sb4 Symptoms: have improved sb4 Condition: Stable sb4 Diagnosis - Encounter for attention to dressings, sutures and drains sb4 Followup: sb4 - With: Vince Hemphill DO - When: 1 week - Reason: Recheck today's complaints, Re-evaluation by your physician Discharge Instructions: - Discharge Summary Sheet sb4 - Midline Catheter sb4 Forms: - Patient Portal Instructions sb4 - Leadership Thank You Letter sb4 Signatures: Dispatcher [employer] Daniela Overton RN RN iw Jaxson Bailon DO DO ms3 Terri Patten PA-C PA-C sb4 Corrections: (The following items were deleted from the chart) 14:31 14:21 . sb4 sb4
--- NOTE | 2025-02-18 15:55 | ER ---
Nurse's Notes [facility] Name: Kristan Yanez Age: 39 yrs Sex: Female : 1985 Arrival Date: 02/18/2025 Time: 14:05 Bed 10 Private MD: Diagnosis: Encounter for attention to dressings, sutures and drains Presentation: 02/18 14:14 Chief complaint: Patient states: has had a midline in left arm X 7 days, her arm is iw hurting and the site is red , is on ertapenem daily to treat ESBL in urine. Coronavirus screen: At this time, the client does not indicate any symptoms associated with coronavirus-19. Ebola Screen: No symptoms or risks identified at this time. Initial Sepsis Screen: Does the patient meet any 2 criteria? No. Patient's initial sepsis screen is negative. Does the patient have a suspected source of infection? No. Patient's initial sepsis screen is negative. Risk Assessment: Do you want to hurt yourself or someone else? Patient reports no desire to harm self or others. Onset of symptoms was February 18, 2025. 14:14 Method Of Arrival: Ambulatory iw 14:14 Acuity: SAE 3 iw VULCANIZER: 15:56 Not kj2 Historical: - Allergies: 14:16 Morphine; iw 14:16 Phenergan; iw 14:16 Rocephin; iw - Home Meds: 14:17 None [Active]; iw - PMHx: 14:17 None; iw - PSHx: 14:16 hysterectomy; Partial; iw - Immunization history:: Adult Immunizations not up to date. - Infectious Disease History:: ESBL, . - Social history:: Smoking status: Reported history of juuling and/or vaping. Screenin:30 [facility] ED Fall Risk Assessment (Adult) History of falling in the last 3 months, kj2 including since admission No falls in past 3 months (0 pts) Confusion or Disorientation No (0 pts) Intoxicated or Sedated No (0 pts) Impaired Gait No (0 pts) Mobility Assist Device Used No (0 pt) Altered Elimination No (0 pt) Score/Fall Risk Level 0 - 2 = Low Risk Maintained a safe environment, Hourly rounding (assess needs \T\ fall precautionary measures) done. Abuse screen: Denies threats or abuse. Denies injuries from another. Nutritional screening: No deficits noted. Tuberculosis screening: No symptoms or risk factors identified. Assessment: 14:30 General: Appears in no apparent distress. Behavior is calm, cooperative. Pain: kj2 Complains of pain in left bicep Pain currently is 5 out of 10 on a pain scale. Neuro: Level of Consciousness is awake, alert, obeys commands, Oriented to person, place, time, situation. Cardiovascular: Patient's skin is warm and dry. Respiratory: Airway is patent. GI: No signs and/or symptoms were reported involving the gastrointestinal system. : No signs and/or symptoms were reported regarding the genitourinary system. 15:30 Reassessment: Patient appears in no apparent distress at this time. Patient and/or kj2 family updated on plan of care and expected duration. Pain level reassessed. Patient is alert, oriented x 3, equal unlabored respirations, skin warm/dry/pink. 15:55 Reassessment: MIDLINE dressing changed as ordered by provider. kj2 Vital Signs: 14:14 BP 138 / 89; Pulse 87; Resp 16; Temp 98.3(O); Pulse Ox 100% on R/A; Weight 68.04 kg; iw Height 5 ft. 4 in. ; Pain 0/10; 15:40 BP 136 / 82; Pulse 72; Resp 20; Temp 98.2; Pulse Ox 100% ; kj2 14:14 Body Mass Index 25.75 (68.04 kg, 162.56 cm) iw 14:14 Pain Scale: Adult iw ED Course: 14:08 Patient arrived in ED. im 14:10 Terri Patten PA-C is PHCP. sb4 14:10 Jaxson Bailon DO is Attending Physician. sb4 14:15 Triage completed. iw 14:18 Arm band placed on. iw 14:30 Patient has correct armband on for positive identification. Provided Education on: call kj2 light. 14:55 Initial lab(s) drawn, by me, sent to lab. First set of blood cultures drawn by me. bc6 14:56 Colette Greene, RN is Primary Nurse. kj2 15:03 Blood Culture Adult (2) Sent. bc6 15:03 CBC with Diff Sent. bc6 15:03 CMP Sent. bc6 15:03 Lactate w/ 2H reflex if indic. Sent. bc6 15:03 Protime (+inr) Sent. bc6 15:03 Ptt, Activated Sent. bc6 15:04 Missed attempt(s): 20 gauge in right antecubital area. Bleeding controlled, band aid bc6 applied, catheter tip intact. 15:54 Vince Hemphill DO is Referral Physician. sb4 15:57 Patient did not have IV access during this emergency room visit. kj2 15:57 Assisted provider with: with midline assessment. kj2 Administered Medications: No medications were administered Medication: 15:39 VIS not applicable for this client. kj2 Outcome: 15:54 Discharge ordered by MD. sb4 15:57 Discharged to home ambulatory, kj2 15:57 Condition: stable 15:57 Discharge instructions given to patient, Instructed on discharge instructions, follow up and referral plans. 16:07 Patient left the ED. kj2 Signatures: Daniela Manuel, RN RN iw Terri Patten, PASerenityC PA-C sb4 Yelitza Castellon bc6 Sydnie Singh Krystal, RN RN kj2 Corrections: (The following items were deleted from the chart) 14:16 14:14 Chief complaint: Patient states: has had a midline in left arm X 7 days, her arm iw is hurting and the site is red iw 14:17 14:14 BP 138 / 89; Pulse 87bpm; Resp 16bpm; Pulse Ox 100% RA; iw iw 14:17 14:14 BP 138 / 89; Pulse 87bpm; Resp 16bpm; Pulse Ox 100% RA; Temp 98.3F Oral; iw iw
[2025-02-18 16:30] VITALS: O2SAT 100
[2025-02-18 16:31] VITALS: BP 136/82; TEMP 98.2
== END 2025-02-18 16:07 | disposition home or self-care (01) ==
LOC: ER 14:05
DX: T82.898A Other specified complication of vascular prosthetic devices, implants and grafts, initial encounter (principal)
CPT/HCPCS: 36415; 80053; 81001; 83605; 85025; 85610; 85730; 87040; 99283

== ENCOUNTER 2025-06-09 10:18 | Emergency (ER) | payer OTHER ==
--- OUTSIDE RECORDS SUMMARY | 2025-06-09 10:22 | XMS REPORT | Clinical Summary ---
Author Name Unknown Organization [facility] [place] Address [address] [place] [address] Care Team Providers Care [employer] Rolls Name Role Phone Chrissie Guerrier MD Primary Care Provider [phone] Allergies Active Allergy Reactions Criticality Noted Date [...] 10/13/1999 - 10/12/2000 HYSTERECTOMY 10/13/2007 - 10/12/2008 [place] COLONOSCOPY FLX DX W/RIO J SPEC WHEN PFRMD 07/22/2016 N/A Procedure: DIAGNOSTIC FLEXIBLE COLONOSCOPY PROXIMAL TO SPLENIC FLEXURE; Surgeon: Feliciano Chao MD; Location: MAIN ENDOSCOPY; Service: GASTROENTEROLOGY [place] ESOPHAGOGASTRODUODENOSCOP Y TRANSORAL DIAGNOSTIC 07/22/2016 Esophagus/N/A Procedure: [...] 2023-2 5 season) 2024 Influenza Vaccine (#1) 2025 Pneumococcal Vaccine Aged Out No long er eligible based on patient's age to complete this topic Insurance [place] Care Teams C[employer] Rolls Relationship Specialty Start Date End Date Chrissie Guerrier MD [address] [place] [address] [email or web address] PCP - General Gastroenterology, Hepatology and Nutrition 07/02/16
--- NOTE | 2025-06-09 11:49 | ER ---
Nurse's Notes [facility] Name: Kristan Yanez Age: 39 yrs Sex: Female : 1985 Arrival Date: 06/09/2025 Time: 10:18 Bed IW8 Private MD: Diagnosis: Assessment: 06/09 11:06 Reassessment: called from lobby, no answer. me1 11:16 Reassessment: called from lobby, no answer. me1 11:37 Reassessment: called from lobby. no answer. me1 11:48 Reassessment: spoke with registration staff who states patient was told by somebody on the phone to, "come to [place] and get your line put in." Pt reportedly left ER [facility]. ED Course: 10:20 Patient arrived in ED. cj3 10:23 Erik Saunders FNP-C is PHCP. dr5 10:23 Jefferson Lerma MD is Attending Physician. dr5 Administered Medications: No medications were administered Outcome: 11:49 Patient left the ED. me1 11:49 Eloped from waiting room, before seeing physician 11:49 unknown Signatures: Elvia Mabry, RN RN Nisa Allen RN RN me1 Erik Saunders FNP-C FNP-Cdr5 Rossy Tang cj3
== END 2025-06-09 11:49 | disposition left against medical advice (07) ==
LOC: ER 10:18
DX: Z02.9 Encounter for administrative examinations, unspecified (principal)